=== PATIENT | female | born 1990 | race African-American/Black ===

== ENCOUNTER 2018-08-31 14:47 | Emergency (ER) | payer MEDICAID ==
[~2018-08-31] VITALS: Ht 170.2 cm; Wt 62.0 kg
[2018-08-31] MEDS ORDERED: ONDANSETRON HCL 4MG/2ML INJ IV ONE (15:30)
[2018-08-31] MEDS ORDERED: MORPHINE SULFATE 4 MG/ML CPJ (NOT FOR IM USE) IV ONE (15:30)
[2018-08-31] MEDS ORDERED: FENTANYL CITRATE/PF 50MCG/ML 2ML VIAL IV ONE ×2 (17:30→19:45)
[2018-08-31] MEDS ORDERED: KETAMINE HCL 50 MG/ML 10ML IV ONE (17:30)
[2018-08-31] MEDS ORDERED: PROPOFOL 200MG/20ML VIAL IV ONE (17:30)
[2018-08-31] MEDS ORDERED: SODIUM CHLORIDE 0.9% 1,000 ML IV ONE (17:30)
[2018-08-31] MEDS ORDERED: BACITRACIN ZINC OINT UDPKT TOP ONE (18:45)
[2018-08-31] MEDS ORDERED: HYDROCODONE/ACETAMINOPHEN 5/325MG TABLET PO ONE (19:45)
[2018-08-31 20:55] VITALS: BP 132/63
== END 2018-08-31 21:17 | disposition home or self-care (01) ==
LOC: ER 14:47
DX: S62.101A Fracture of unspecified carpal bone, right wrist, initial encounter for closed fracture (principal); S62.616A Displaced fracture of proximal phalanx of right little finger, initial encounter for closed fracture; S61.411A Laceration without foreign body of right hand, initial encounter; V43.52XA Car driver injured in collision with other type car in traffic accident, initial encounter; Y93.89 Activity, other specified; Y92.89 Other specified places as the place of occurrence of the external cause; Y99.8 Other external cause status
CPT/HCPCS: 12001; 25605; 73110; 73120; 96374; 96375; 99152; 99291; J2270; J2405; J2704; J3010; J3490; J7030

== ENCOUNTER 2018-09-12 15:28 | Emergency (ER) | payer SELFPAY ==
[~2018-09-12] VITALS: Ht 160 cm; Wt 78.0 kg
[2018-09-12] MEDS ORDERED: BACITRACIN ZINC OINT UDPKT TOP ONE (16:30)
[2018-09-12 16:38] VITALS: BP 116/69
== END 2018-09-13 00:11 | disposition home or self-care (01) ==
LOC: ER 16:14
DX: Z48.02 Encounter for removal of sutures (principal)
CPT/HCPCS: 99283